=== PATIENT | female | born 1990 | race Caucasian/White ===

== ENCOUNTER 2017-04-12 05:15 | Inpatient (IN) | payer OTHER ==
[2017-04-12 06:14] VITALS: BMI 27.3
[2017-04-12] MEDS ORDERED: Lactated Ringer's 1,000 ML IV SCH (07:15)
--- NOTE | 2017-04-12 07:42 | OBADHP ---
Datetime: 04/12/2017 06:58 Admit Comment, IP Provider: 26 year old at 39 4/7 weeks GA based on LMP 07/09/16, EDC 04/15/17 pr esents to OB ED stating that her water broke at 3:35 am this morning. Pt denies vaginal bleeding or c tx. Reports +FM. Pt is hepatitis A and hepatitis B positive and currently seeing GI. Pt is GBS negat jinny. Denies nausea, vomiting, abdominal pain, headache, dizziness, chest pain. PNC: Roddy, Dr. Reynolds/Dr. Palmer PNL: GBS neg, hepatitis A and hepatitis B positive, rpr neg, hiv neg, gc/c neg, pap neg, rubella i mmune. 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 denies hx STI. PSH:denies FH: Father [place] at age 44, Mother Hepatitis B, Maternal Aunt Breast Cancer at age 55 Meds: Vitamin, Vit. D Allergies: NKDA Assessement: 26 yo IUP @ 39 4/7 weeks GA, has SROM. Plan: Admit to L_D CBC Type and screen IVF Case d/w on-call OB attending Dr. Ashish العلي, PGY1 Addendum: I saw and examined patient at presentation. Pt grossly ruptured. Admit for management. Both MWB /FWB reassuring at this time. Ashish Extremities - PN: Normal Abdomen - PN: Normal Back - PN: Normal Lungs - PN: Normal Heart - PN: Normal Neurologic - PN: Normal HEENT - PN: Normal General - PN: Normal FHR - Baseline A Provider: 130s Membranes, Provider: Ruptured Comments, ACOG Physical Exam: SPE: clear fluids on speculum indicative of ROM. Pool Provider: Positive IP Hx Assessment: The History has been Reviewed and is Current IP Chief Complaint: Suspected ruptured membranes NICHD Variability Prov Fetus A: Moderate 6-25bpm NICHD Accel Fetus A IP Provider: [id number] FHR Category Provider Fetus A: Category I Dilatation, Provider: 1 Effacement, Provider: 75 Genitourinary Exam: Normal EGA AdmitDate IP: 39.4 IP Adm Impression: Term, intrauterine IP Admit Plan: Admit to unit; Initiate labor protocol
[2017-04-12 07:53] LABS: BASO % 0.3 % (0.0-2.0); EOS # 0.2 K/uL (0.0-0.7); EOS % 1.3 % (0.0-4.0); HEMATOCRIT 38.2 % (34.0-47.0); LYMPH # 2.1 K/uL (1.0-4.3); LYMPH % 15.8 % (20.0-40.0); MEAN CELL VOLUME 95.7 fl (81.0-99.0); MEAN CORPUSCULAR HEMOGLOBIN 31.5 pg (27.0-31.0); MEAN CORPUSCULAR HGB CONC 32.9 g/dL (33.0-37.0); MEAN PLATELET VOLUME 7.8 fl (7.2-11.7); MONO # 0.9 K/uL (0.0-0.8); NEUT # 10.1 K/uL (1.8-7.0); NEUT % 75.6 % (50.0-75.0); RED CELL DISTRIBUTION WIDTH 13.4 % (11.5-14.5); WHITE BLOOD COUNT 13.4 K/uL (4.8-10.8)
[2017-04-12] MEDS: Lactated Ringer's 1,000 ML IV SCH ×4 (09:40→20:30)
[2017-04-12] MEDS ORDERED: Oxytocin 30 UNITS in Sodium Chloride 0.9% 500 ML IV ONE ×4 (10:55→23:30)
[2017-04-12] MEDS ORDERED: Fentanyl/Bupivacaine HCl 250 ML EPI ONE (13:25)
[2017-04-12] MEDS ORDERED: Bupivacaine HCl 0.25% PF (10 ml) Inj ONE (13:26)
[2017-04-12] MEDS ORDERED: Oxycodone/Acetaminophen 5/325 mg Tab PO PRN (22:54)
--- NOTE | 2017-04-12 22:55 | OBDS ---
MATERNAL INFORMATION Delivery Anesthesia: Epidural Estimated Blood Loss (ml): 200 Maternal Complications: None Provider Comments: of live male infant over midline episiotomy, ROYAL, 6lbs 8oz, /9, followed by shoulders and rest of atraumatically, cord clamped and cut, placed in warmer, cord blo od obtained, placenta delivered spontaneously, fundus firm, EBL = 200mL, 2nd degree laceration repair ed withi 2-0 vicryl rapide LABOR SUMMARY EDC: 04/15/2017 00:00 LABOR INFORMATION Reason for Induction: Not Applicable Onset of Labor: 04/12/2017 12:00 Complete Dilatation: 04/12/2017 18:30 Oxytocin: Augmentation Group B Beta Strep: Negative Antibiotics # of Doses: na Antibiotics Time of Last Dose: na MEMBRANES Membranes Rupture Method: Spontaneous Rupture of Membranes: 04/12/2017 03:30 Length of Rupture (hrs): 18.88 Amniotic Fluid Color: Clear Amniotic Fluid Amount: Small Amniotic Fluid Odor: None STAGES OF LABOR Stage 1 hrs: 6 Stage 1 min: 30 Stage 2 hrs: 3 Stage 2 min: 53 Stage 3 hrs: 0 Stage 3 min: 5 Total Time in Labor hrs: 10 Total Time in Labor min: 28 BABY A INFORMATION Infant Delivery Date/Time: 04/12/2017 22:23 Method of Delivery: Vaginal Born in Route : No : N/A Forceps: N/A Vacuum Extraction: N/A Shoulder Dystocia : No SHOULDER DYSTOCIA BABY A Infant Delivery Date/Time: 04/12/2017 22:23 PRESENTATION/POSITION BABY A Presentation: Cephalic PLACENTA INFORMATION BABY A Placenta Delivery Time : 04/12/2017 22:28 SCORES BABY A Heart Rate 1 min: >100 bpm Resp Effort 1 min: Good Cry Reflex Irritability 1 min: Cough or Sneeze or Pulls Away Muscle Tone 1 min: Active Motion Color 1 min: Body [place], Extremities Blue Resuscitation Effort 1 min: Tactile Stimulation SCORE 1 MIN: 9 Heart Rate 5 min: >100 bpm Resp Effort 5 min: Good Cry Reflex Irritability 5 min: Cough or Sneeze or Pulls Away Muscle Tone 5 min: Active Motion Color 5 min: Body [place], Extremities Blue Resuscitation Effort 5 min: N/A SCORE 5 MIN: 9 INFORMATION BABY A Gestational Age at Delivery: 39.0 Gestational Status: Term Infant Outcome : Liveborn Infant Condition : Stable Sex: Male IDENTIFICATION/MEDS BABY A ID Band Number: [id number] WEIGHT/LENGTH BABY A Infant Birthweight (gms): 2950 Infant Weight (lb): 6 Infant Weight (oz): 8 CORD INFORMATION BABY A No. Cord Vessels: 3 Suction: Mouth; Nose
[2017-04-13] MEDS: Benzocaine/Menthol SPRAY TOP PRN ×2 (04:50→22:33)
[2017-04-13 07:28] LABS: BASO # 0.1 K/uL (0.0-0.2); BASO % 0.6 % (0.0-2.0); EOS # 0.1 K/uL (0.0-0.7); EOS % 0.4 % (0.0-4.0); HEMATOCRIT 28.6 % (34.0-47.0); LYMPH # 1.4 K/uL (1.0-4.3); LYMPH % 6.8 % (20.0-40.0); MEAN CELL VOLUME 95.7 fl (81.0-99.0); MEAN CORPUSCULAR HEMOGLOBIN 31.6 pg (27.0-31.0); MEAN CORPUSCULAR HGB CONC 33.1 g/dL (33.0-37.0); MEAN PLATELET VOLUME 7.7 fl (7.2-11.7); MONO # 1.2 K/uL (0.0-0.8); NEUT # 17.8 K/uL (1.8-7.0); NEUT % 86.2 % (50.0-75.0); PLATELET COUNT 190 K/uL (130-400); RED CELL DISTRIBUTION WIDTH 13.4 % (11.5-14.5)
[2017-04-13 07:44] LABS: WHITE BLOOD COUNT 20.7 K/uL (4.8-10.8)
[2017-04-13 09:21] LABS: NEUTROPHIL 83 % (42-75); TOTAL CELLS COUNTED 100
--- NOTE | 2017-04-13 09:25 | OBPPN ---
Datetime: 04/13/2017 09:22 PP Pain Prov: Within normal limits PP Nausea Prov: Denies PP Flatus Prov: Yes PP Breasts Prov: Not Done PP Heart Prov: Normal PP Lungs Prov: Normal PP Abdomen/Uterus Prov: Normal PP Lochia Prov: Not Done PP Vulva/Perineum Prov: Not Done PP CVA Tenderness Prov: Normal PP Extremities Prov: Normal PP C/S Incision Prov: Not Applicable PP Progress Prov: Normal PP Impression Prov: Normal progression PP Plan Prov: Continue present management PP Progress Note Prov: Patient very well reports minimal lochia pain well-controlled voiding without difficulty Vital signs stable afebrile Uterus firm below the umbilicus Extremities no Homans day #1 Encourage ambulation, regular diet, analgesia as needed, anticipate discharge in a.m. Vital Signs Provider PP: Reviewed
[2017-04-13] MEDS: Prenatal Multivit/Folic Acid/Iron Tab PO SCH (10:02)
[2017-04-14] MEDS: Prenatal Multivit/Folic Acid/Iron Tab PO SCH (08:47)
--- NOTE | 2017-04-14 10:14 | OBDCSUM ---
Datetime: 04/14/2017 10:11 Discharged to, Provider: Home Follow up at, Provider: [facility] Disch Instr Activity: Normal activity Disch Instr Diet: Regular Discharge Instructions, Provider: Routine instructions given Discharge Diagnosis, Provider: Term Delivered Follow up in weeks, Provider: 6 weeks Disch Referrals: None Contraception discussed, Prov: Yes Disch Activity Restrictions: No sexual activity; Nothing in vagina - [place], tampons, douche Discharge Comment, Provider: Patient cleared for discharge Contraception after Delivery: Undecided
[2017-04-14 19:02] VITALS: BP 118/70; PULSE 92; RESP 16; TEMP 97.2; O2SAT 99
== END 2017-04-14 14:54 | disposition home or self-care (01) | DRG 774 ==
LOC: H.EROB2 05:15 → H.L&D 06:26 → UNDOADMIN 06:26 → H.L&D 07:10 → H.OB/GYN 04-13 01:15
PROVIDERS: ADMIT Obstetrics & Gynecology Gynecology; ATTEND Obstetrics & Gynecology Gynecology
PROC: 0KQM0ZZ Repair Perineum Muscle, Open Approach (ICD-10-PCS; principal; 2017-04-12)
PROC: 10E0XZZ Delivery of Products of Conception, External Approach (ICD-10-PCS; 2017-04-12)
PROC: 4A1HXCZ Monitoring of Products of Conception, Cardiac Rate, External Approach (ICD-10-PCS; 2017-04-12)
DX: O70.1 Second degree perineal laceration during delivery (principal); O98.42 Viral hepatitis complicating childbirth; Z37.0 Single live birth; B19.10 Unspecified viral hepatitis B without hepatic coma; B15.9 Hepatitis A without hepatic coma; Z3A.39 39 weeks gestation of pregnancy